=== PATIENT | male | born 1980 | race Caucasian/White ===

== ENCOUNTER 2016-10-17 12:12 | Outpatient (CLI) ==
[2016-09-11 07:58] VITALS: BMI 29.0
== END 2016-10-17 12:13 | disposition home or self-care (01) ==
LOC: LAB 12:12
PROVIDERS: ATTEND Nurse Practitioner Family
DX: Z20.2 Contact with and (suspected) exposure to infections with a predominantly sexual mode of transmission (principal)
CPT/HCPCS: 87800

== ENCOUNTER 2016-10-18 23:20 | Emergency (ER) ==
[2016-10-18 23:33] VITALS: BP 126/77; TEMP 97.5; BMI 27.1
[2016-10-18] MEDS ORDERED: ZOFRAN 4 MG/2 ML IM STA (23:42)
[2016-10-18] MEDS ORDERED: DEMEROL 25 MG/ML SYRINGE IM STA (23:42)
--- NOTE | 2016-10-18 23:45 | ED.PDOC ---
General ED Provider: Dr. DANIEL MENA Chief Complaint: Abdominal Pain Stated Complaint: Hurting in the right of the belly for 2 days, has been treated for genital herpes with valacyclovir, and took difluc yesterday. Time Seen by Physician: 23:42 Mode of Arrival: Walk-In Information Source: Patient Primary Care Provider: IRASEMA CORRAL Nursing and Triage Documentation Reviewed and Agree: Yes GI Complaint Exam - Abdominal Pain Complaint/Exam Onset: Gradual Symptoms Are: Still present Timing: Constant Initial Severity: Severe Current Severity: Severe Location of Pain: RUQ Character: Reports: Aching, Throbbing Aggravating: Reports: Movement, Deep breaths, Position Alleviating: Reports: None Associated Signs and Symptoms: Reports: Nausea. Denies: Diaphoresis, Fever, Cough, Chest pain, Dizziness, Back pain, Constipation, Blood in stool, Dysuria, Urinary frequency, Decreased urine output, Decreased appetite, Discharge, Vomiting, Diarrhea, Decreased activity AAA Risk Factors: Reports: None Cardiac Risk Factors: Reports: None Testicular Torsion Risk Factors: Reports: None Surgical Obstruction Risk Factors: Reports: None Related Surgical History: Reports: None Abdominal Findings: Absent: Pulsatile mass, Abdominal distention, Unequal femoral pulses Differential Diagnoses: Hepatitis, Pancreatitis, GB, PUD Review of Systems - Review Of Systems Constitutional: Reports: Malaise, Weakness Eyes: Reports: No symptoms Ears, Nose, Mouth, Throat: Reports: No symptoms Respiratory: Reports: No symptoms Cardiac: Reports: No symptoms GI: Reports: Abdominal pain : Reports: No symptoms Musculoskeletal: Reports: No symptoms Skin: Reports: No symptoms Neurological: Reports: No symptoms Endocrine: Reports: No symptoms Hematologic/Lymphatic: Reports: No symptoms All Other Systems: Reviewed and Negative Past Medical History - Past Medical History Previously Healthy: No Endocrine: Reports: None Cardiovascular: Reports: None Respiratory: Reports: None Hematological: Reports: None Gastrointestinal: Reports: None Genitourinary: Reports: None Neuro/Psych: Reports: None Musculoskeletal: Reports: None Cancer: Reports: None Other Pertinent Past Medical History: ADD, ADHD - Surgical History General Surgical History: Reports: None - Family History Family History: Reports: None - Social History Smoking Status: Current some day smoker Smoking Cessation Counseling Time: > 3 min - 10 min Hx Substance Use: Yes (ADDERALL) Alcohol Screening: Occasionally Physical Exam - Physical Exam Appearance: Well-appearing, Ill-appearing Eyes: MARCELINO, EOMI, Conjunctiva clear ENT: Ears normal, Nose normal, Oropharynx normal Respiratory: Airway patent, Breath sounds clear, Breath sounds equal, Respirations nonlabored Cardiovascular: RRR, Pulses normal, No rub, No murmur GI/: Soft, Tender Musculoskeletal: Normal strength, ROM intact, No edema, No calf tenderness Skin: Warm, Dry, Normal color Neurological: Sensation intact, Motor intact, Reflexes intact, Cranial nerves intact, Alert, Oriented Psychiatric: Affect appropriate, Mood appropriate Interpretation - Radiology Interpretation Radiology Interpretation By: Radiologist Radiology Results: Negative Exam Interpreted: CT Scan Critical Care Note - Critical Care Note Total Time (mins): 0 Course - Course Hematology/Chemistry: 10/18/16 23:59 10/18/16 23:59 Orders, Labs, Meds: Lab Review 10/18/16 23:59 WBC 5.87 RBC 4.63 L Hgb 14.6 Hct 43.5 MCV 94.0 MCH 31.5 H MCHC 33.6 RDW Coeff of Tc 12.8 Plt Count 276 Immature Gran % (Auto) 0.2 Neut % (Auto) 57.0 Lymph % (Auto) 32.2 [place] % (Auto) 8.7 Eos % (Auto) 1.2 Baso % (Auto) 0.7 Immature Gran # (Auto) 0.0 Neut # 3.4 Lymph # 1.9 [place] # 0.5 Eos # 0.1 Baso # 0.0 Sodium 137 Potassium 3.8 Chloride 101 Carbon Dioxide 27 Anion Gap 12.8 BUN 8 Creatinine 1.03 Estimated GFR (MDRD) 83.00 BUN/Creatinine Ratio 7.76 Glucose 91 Calcium 9.1 Total Bilirubin 0.42 AST 31 ALT 22 Alkaline Phosphatase 46 L Total Protein 6.7 Albumin 4.0 Globulin 2.7 Albumin/Globulin Ratio 1.48 Amylase 80 Lipase 43 Urine Color Yellow Urine Clarity Clear Urine pH 7.0 Ur Specific [place] 1.020 Urine Protein Negative Urine Glucose (UA) Negative Urine Ketones Negative Urine Blood Negative Urine Nitrite Negative Urine Bilirubin Negative Urine Urobilinogen 0.2 Ur Leukocyte Esterase Negative Orders Category Date Time Status AMYLASE Stat LAB 10/18/16 23:59 Completed CBC W/ AUTO DIFF Stat LAB 10/18/16 23:59 Completed COMPREHENSIVE METABOLIC PANEL Stat LAB 10/18/16 23:59 Completed LIPASE Stat LAB 10/18/16 23:59 Completed UA [URINALYSIS C & S IF INDICATED] Stat LAB 10/18/16 23:59 Completed Meperidine HCl/Pf [Demerol 25 mg/ml Syringe] MEDS 10/18/16 23:42 Discontinued 25 mg IM ONCE STA Ondansetron HCl/Pf [Zofran 4 mg/2 ml] MEDS 10/18/16 23:42 Discontinued 4 mg IM ONCE STA CT ABDOMEN/PELVIS WO CONTRAST Stat RADS 10/18/16 23:42 Taken Medications Discontinued Medications Generic Name Dose Route Start Last Admin Trade Name Priyanka PRN Reason Stop Dose Admin Meperidine HCl 25 mg 10/18/16 23:42 10/18/16 23:51 Demerol 25 Mg/Ml Syringe IM 10/18/16 23:43 25 mg ONCE STA Administration Ondansetron HCl 4 mg 10/18/16 23:42 10/18/16 23:55 Zofran 4 Mg/2 Ml IM 10/18/16 23:43 4 mg ONCE STA Administration Vital Signs: Temp Pulse Resp BP Pulse Ox 10/18/16 23:21 97.5 F L 81 20 126/77 96 Departure - Departure Time of Disposition: 00:31 Disposition: HOME SELF-CARE Discharge Problem: Abdominal pain Instructions: Abdominal Pain (ED) Condition: Stable Pt referred to PMD for follow-up: Yes Additional Instructions: increase hydration miralax otc Prescriptions: Polyethylene Glycol 3350 [Miralax] 17 gm PO DAILY #30 powd.pack Allergies/Adverse Reactions: Allergies No Known Allergies Allergy (Verified 10/18/16 23:33) Home Medications: Ambulatory Orders Polyethylene Glycol 3350 [Miralax] 17 gm PO DAILY #30 powd.pack 10/19/16 Disposition Discussed With: Patient
[2016-10-19 00:03] LABS: BASOPHILS % (AUTO) 0.7 % (0.0-3.0); EOSINOPHILS # (AUTO) 0.1 K/ul (0.0-0.7); EOSINOPHILS % (AUTO) 1.2 % (0.0-7.0); HEMATOCRIT 43.5 % (42.0-52.0); HEMOGLOBIN 14.6 g/dl (14.0-18.0); IMMATURE GRANULOCYTE % (AUTO) 0.2 % (0.0-5.0); LYMPHOCYTES # (AUTO) 1.9 K/uL (0.60-3.4); LYMPHOCYTES % (AUTO) 32.2 (10.0-50.0); MEAN CORPUSCULAR HEMOGLOBIN 31.5 pg (27.0-31.0); MEAN CORPUSCULAR HGB CONC 33.6 (31.8-35.4); MONOCYTES # (AUTO) 0.5 K/uL (0.4-2.0); MONOCYTES % (AUTO) 8.7 (0-10); NEUTROPHILS # (AUTO) 3.4 K/ul (2.0-6.9); PLATELET COUNT 276 10^3/uL (140-440); RED BLOOD COUNT 4.63 10^6/ul (4.70-6.10); WHITE BLOOD COUNT 5.87 K/ul (4.2-10.2)
[2016-10-19 00:10] LABS: ADD URINE MICROSCOPIC NO; BILIRUBIN,URINE Negative (NEGATIVE); KETONES,URINE Negative (NEGATIVE); LEUKOCYTE ESTERASE ,URINE Negative (NEGATIVE); NITRITE,URINE Negative (NEGATIVE); PROTEIN,URINE Negative (NEGATIVE); URINE, BLOOD Negative (NEGATIVE)
[2016-10-19 00:27] LABS: ALBUMIN/GLOBULIN RATIO 1.48; ANION GAP 12.8; BILIRUBIN,TOTAL 0.42 mg/dL (0.00-1.20); BUN/CREATININE RATIO 7.76; CALCIUM 9.1 mg/dL (8.2-10.2); CREATININE 1.03 mg/dL (0.60-1.10); POTASSIUM 3.8 mmol/L (3.5-5.1); TOTAL PROTEIN 6.7 g/dL (6.4-8.2)
--- NOTE | 2016-10-19 01:19 | CT ---
EXAM: CT scan abdomen pelvis without contrast HISTORY: Right upper quadrant pain COMPARISON: CT scan abdomen pelvis 07/23/2016 FINDINGS: Contiguous axial images obtained through the abdomen pelvis without contrast utilizing 3- mm collimation. Sagittal and coronal reconstructions were imaged and reviewed. There is minimal dep endent density at the left lung base. Gallbladder is fluid filled without cholelithiasis. The live r, pancreas, spleen and adrenal glands have normal unenhanced CT appearance. The kidneys are morpho logically normal. There is no evidence of free fluid or inflammatory changes Bone windows reveals no evidence of lytic or blastic lesions. IMPRESSION: No acute intra-abdominal findings. Atelectasis left lung base.
== END 2016-10-19 01:25 | disposition home or self-care (01) ==
LOC: ED 23:20
DX: R10.11 Right upper quadrant pain (principal); R11.0 Nausea; R53.1 Weakness; F17.210 Nicotine dependence, cigarettes, uncomplicated
CPT/HCPCS: 36415; 80053; 81001; 82150; 83690; 85025; 96372; 99283

== ENCOUNTER 2016-11-10 17:47 | Emergency (ER) ==
[2016-11-10 17:56] VITALS: BP 147/80; TEMP 98.3; BMI 27.8
[2016-11-10] MEDS ORDERED: SILVADENE CREAM TP STA (18:04)
[2016-11-10] MEDS ORDERED: NORCO 7.5-325 PO STA (18:04)
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
== END 2016-11-10 18:25 | disposition home or self-care (01) ==
LOC: ED 17:47
DX: T23.401A Corrosion of unspecified degree of right hand, unspecified site, initial encounter (principal); T23.402A Corrosion of unspecified degree of left hand, unspecified site, initial encounter; F17.210 Nicotine dependence, cigarettes, uncomplicated
CPT/HCPCS: 99282

== ENCOUNTER 2017-04-24 19:18 | Emergency (ER) ==
[2017-04-24 19:37] VITALS: BP 121/79; TEMP 98.7; BMI 25.7
[2017-04-24] MEDS ORDERED: TORADOL IM STA (19:51)
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
[2017-04-24 20:01] LABS: BILIRUBIN,URINE Negative (NEGATIVE); KETONES,URINE Negative (NEGATIVE); LEUKOCYTE ESTERASE ,URINE 1+ (NEGATIVE); NITRITE,URINE Negative (NEGATIVE); PH,URINE 6.5 (5-9); PROTEIN,URINE Negative (NEGATIVE); URINE, BLOOD Negative (NEGATIVE)
[2017-04-24 20:04] LABS: ADD URINE MICROSCOPIC YES
[2017-04-24 20:12] LABS: BACTERIA,URINE TRACE (NOT PRESENT)
--- NOTE | 2017-04-24 20:20 | DI ---
Exam: Right shoulder two views History: Right shoulder pain Findings / impression: No acute bony or articular abnormalities of the right shoulder. Osteoarthri tic enlargement of the distal clavicle is probably mild. The glenohumeral joint appears normal.
== END 2017-04-24 20:45 | disposition home or self-care (01) ==
LOC: ED 19:18
DX: S46.001A Unspecified injury of muscle(s) and tendon(s) of the rotator cuff of right shoulder, initial encounter (principal); M25.511 Pain in right shoulder; R30.0 Dysuria; F17.210 Nicotine dependence, cigarettes, uncomplicated
CPT/HCPCS: 81001; 87086; 87800; 99283

== ENCOUNTER 2017-06-10 10:35 | Emergency (ER) | payer OTHER ==
[2017-06-10 10:40] VITALS: BP 125/89; TEMP 97.2; BMI 25.7
--- NOTE | 2017-06-10 10:55 | ED.PDOC ---
General ED Provider: Dr. MESFIN JUSTICE JR Chief Complaint: Abdominal Pain Stated Complaint: patient states he has been having lower abd. pain and pain in right flank. states he has had a discharge from penis and his testicles are numb. states it is greenish pus. working didn't have time in custody doxycycline on saturday he hasn't had bowel movement 3 days. HAS HAD STD IN PAST MONTHS UNSURE OF DIAGNOSIS OR TREATMENT, HE COMPLAINS OF LE PAIN AND NUMBNESS WITH SCROTAL NUMBNESS MAEW REFLEXES INTACT SLR NEGATIVE- NO EVIDENCE OF NEUROLOGIC OR BONE DISEASE BUT RECOMMEND OUTPATIETN EVALUATION 97.2 64 20 124/ 89 07/09. cramping stabbing pain Time Seen by Physician: 11:17 Mode of Arrival: Walk-In Information Source: Patient, Other Exam Limitations: No limitations Primary Care Provider: DANIEL [facility] Nursing and Triage Documentation Reviewed and Agree: No Review of Systems - Review Of Systems Constitutional: Reports: Malaise, Weakness Eyes: Reports: No symptoms Ears, Nose, Mouth, Throat: Reports: No symptoms Respiratory: Reports: No symptoms Cardiac: Reports: No symptoms GI: Reports: Abdominal pain, Constipated : Reports: Burning, Dysuria, Discharge, Frequency, Pain, Urgency Musculoskeletal: Reports: Back pain, Muscle pain (LUMBAR SPINE AND PARASPINAL) Skin: Reports: No symptoms Neurological: Reports: Emotional problems, Numbness, Weakness Endocrine: Reports: No symptoms Hematologic/Lymphatic: Reports: No symptoms All Other Systems: Other Past Medical History - Past Medical History Previously Healthy: No Endocrine: Reports: None Cardiovascular: Reports: None Respiratory: Reports: None Hematological: Reports: None Gastrointestinal: Reports: None Genitourinary: Reports: None, Other (GENITAL HERPES, STDS) Neuro/Psych: Reports: Other (ADD/ADHD, HEAD INJURY ) Musculoskeletal: Reports: None Cancer: Reports: None Other Pertinent Past Medical History: ADD, ADHD - Surgical History General Surgical History: Reports: None, Orthopedic (Prior right shoulder injury , right hand surgery) - Family History Family History: Reports: None - Social History Smoking Status: Current every day smoker Hx Substance Use: Yes (adderall) Alcohol Screening: Occasionally Physical Exam - Physical Exam Appearance: Well-appearing, Thin Pain Distress: Mild Neck: Supple Respiratory: Airway patent GI/: Soft, Nontender, No masses, Bowel sounds normal, No Organomegaly, Tender (TESTICELA AND LUMBAR SPINE AND PARASPINAL MUSCLES) Musculoskeletal: Normal strength (NO EVIDENCE OF WEAKESS DEFECIT OR POSITIONAL SYMPTOMS), ROM intact, No edema, No calf tenderness Skin: Warm, Dry, Normal color Neurological: Sensation intact (DESPITE COMPLAITS OF NUMBNESS NOT OBJECTIVE CHANGES- COMPLAINSOF PAIN THROUGH SCROTUM), Motor intact, Reflexes intact, Cranial nerves intact, Alert, Oriented Psychiatric: Affect appropriate, Mood appropriate Critical Care Note - Critical Care Note Total Time (mins): 0 Course - Course Vital Signs: Temp Pulse Resp BP Pulse Ox 06/10/17 10:37 97.2 F L 64 20 125/89 97 Departure - Departure Time of Disposition: 11:26 Disposition: HOME SELF-CARE Discharge Problem: Concern about STD in male without diagnosis, History of penile discharge Instructions: Sexually Transmitted Diseases (ED), Condom Use (ED) Condition: Good Pt referred to PMD for follow-up: Yes Additional Instructions: FINISH DOXYCYCLINE ROCEPHIN GIVEN IN ER RECOMMEND REEVALUATION OF BACK PAIN RECOMMEND REEVALUATION OF PROSTATE AFTER PROSTATITIS RETURN IF FEVER OVER 101.0 IF VOMITING MORE THAN 24 HOURS OR IF OTHER NEW SYMPTOMS FOR CONSTIPATION MAY USE MIRALAX DAILY NEEDED FOR NO BOWEL MOVEMENT Prescriptions: Polyethylene Glycol 3350 [Miralax] 17 gm PO DAILY PRN #510 powder PRN Reason: Constipation Allergies/Adverse Reactions: Allergies No Known Allergies Allergy (Verified 06/10/17 10:40) Home Medications: Ambulatory Orders Ibuprofen [Motrin] 600 mg PO Q6H PRN #30 tablet 04/24/17 Doxycycline Hyclate 100 mg PO BID 06/10/17 Polyethylene Glycol 3350 [Miralax] 17 gm PO DAILY PRN #510 powder 06/10/17
[2017-06-10] MEDS ORDERED: ROCEPHIN IM STA (11:21)
[2017-06-10 11:30] LABS: ADD URINE MICROSCOPIC NO; BILIRUBIN,URINE Negative (NEGATIVE); KETONES,URINE Negative (NEGATIVE); LEUKOCYTE ESTERASE ,URINE Negative (NEGATIVE); NITRITE,URINE Negative (NEGATIVE); PROTEIN,URINE Negative (NEGATIVE); URINE, BLOOD Negative (NEGATIVE)
[2017-06-10] MEDS ORDERED: LIDOCAINE 1% 2ML (SURGERY ONLY) INJ STA (11:33)
[2017-06-10] MEDS ORDERED: LIDOCAINE HCL 1% SDV ONE (12:07)
== END 2017-06-10 12:08 | disposition home or self-care (01) ==
LOC: ED 10:35
DX: R36.9 Urethral discharge, unspecified (principal); K59.00 Constipation, unspecified; M54.9 Dorsalgia, unspecified; F17.210 Nicotine dependence, cigarettes, uncomplicated
CPT/HCPCS: 36415; 81001; 87800; 96372; 99283

== ENCOUNTER 2019-01-13 06:19 | Emergency (ER) ==
[2019-01-13 06:29] VITALS: TEMP 98; BMI 28.8
[2019-01-13 06:31] VITALS: BP 165/80
[2019-01-13] MEDS ORDERED: NORFLEX IM STA (06:36)
[2019-01-13] MEDS ORDERED: TORADOL IM STA (06:36)
--- NOTE | 2019-01-13 06:39 | ED.PDOC ---
General Stated Complaint: my back hurts all the way to the front Time Seen by Physician: 06:30 Mode of Arrival: Walk-In Information Source: Patient Exam Limitations: No limitations Nursing and Triage Documentation Reviewed and Agree: Yes Does patient meet sepsis criteria?: No System Inflammatory Response Syndrome: Not Applicable <CORYKARMEN Last Filed: 01/13/19 06:37> <GUSTAVO PHILLIPS - Last Filed: 01/13/19 08:08> ED Provider: Dr. GUSTAVO PHILLIPS Chief Complaint: Back Pain Sepsis Protocol: For patient's 13 years and over: Temp is 96.8 and below OR 101 and greater Pulse >90 BPM Resp >20/minute Acutely Altered Mental Status Are patient's symptoms suggestive of a new infection, such as: -Pneumonia -Skin, Soft Tissue -Endocarditis -UTI -Bone, Joint Infection -Implantable Device -Acute Abdominal Infection -Wound Infection -Meningitis -Blood Stream Catheter Infection -Unknown Musculoskeletal Complaint Exam - Back Pain Complaint/Exam Mechanism of Injury: Reports: No known trauma Onset/Duration: 3 weeks Symptoms Are: Still present Timing: Constant Initial Severity: Mild Current Severity: Moderate Location: Reports: Discrete Character: Reports: Dull, Aching Aggravating: Reports: Movements, Lifting, Bending Associated Signs and Symptoms: Reports: Flank pain Focal Tenderness: Yes Paraspinal Muscle Tenderness: Yes Paraspinal Muscle Spasm: No Scoliosis: No Lordosis: No Kyphosis: No SLR Test: Right Negative, Left Negative Hip Motion Testing Pain: Right Negative, Left Negative Focal Weakness: Present: None Focal Sensory Loss: Present: None Gait: Present: Normal Differential Diagnoses: Herniated Disk, Renal Colic <CORYKARMEN Last Filed: 01/13/19 06:37> Review of Systems - Review Of Systems Constitutional: Reports: No symptoms Eyes: Reports: No symptoms Ears, Nose, Mouth, Throat: Reports: No symptoms Respiratory: Reports: No symptoms Cardiac: Reports: No symptoms GI: Reports: No symptoms : Reports: No symptoms Musculoskeletal: Reports: Back pain Skin: Reports: No symptoms Neurological: Reports: No symptoms Endocrine: Reports: No symptoms Hematologic/Lymphatic: Reports: No symptoms All Other Systems: Reviewed and Negative <CORYKARMEN Last Filed: 01/13/19 06:37> Past Medical History - Past Medical History Previously Healthy: No Endocrine: Reports: None Cardiovascular: Reports: None Respiratory: Reports: None Hematological: Reports: None Gastrointestinal: Reports: None Genitourinary: Reports: None, Other (GENITAL HERPES, STDS) Neuro/Psych: Reports: Other (ADD/ADHD, HEAD INJURY ) Musculoskeletal: Reports: None Cancer: Reports: None Other Pertinent Past Medical History: ADD, ADHD - Surgical History General Surgical History: Reports: None, Orthopedic (Prior right shoulder injury , right hand surgery) - Family History Family History: Reports: None - Social History Smoking Status: Current every day smoker, Heavy tobacco smoker Hx Substance Use: Yes (adderall) Alcohol Screening: Occasionally - Immunizations Tetanus Shot up to Date: No <KARMEN RAY Last Filed: 01/13/19 06:37> Physical Exam - Physical Exam Appearance: Well-appearing, No pain distress, Well-nourished Eyes: MARCELINO, EOMI, Conjunctiva clear ENT: Ears normal, Nose normal, Oropharynx normal Neck: Supple Respiratory: Airway patent, Breath sounds clear, Breath sounds equal, Respirations nonlabored Cardiovascular: RRR, Pulses normal, No rub, No murmur GI/: Soft, Nontender, No masses, Bowel sounds normal, No Organomegaly Musculoskeletal: Limited ROM Skin: Warm Neurological: Sensation intact Psychiatric: Affect appropriate, Mood appropriate <KARMEN RAY - Last Filed: 01/13/19 06:37> Interpretation - Radiology Interpretation Radiology Interpretation By: Radiologist Radiology Results: Negative Exam Interpreted: Other (Abdomen/Pelvis without - negative) Radiology Interpretation By: Radiologist Radiology Results: Negative Exam Interpreted: Other (CT Lumbar Spine - Negative) <GUSTAVO PHILLIPS - Last Filed: 01/13/19 08:08> Re-Evaluation - Re-Evaluation Time of Re-Evaluation: 07:45 Status: Unchanged Vital Signs Stable: Yes Appearance: NAD Lungs: Clear Skin: Warm and Dry Neuro: Alert and Oriented X3 CV: RRR Additional Comments: Abd soft; generalized tenderness per patient both sides radiating from back <GUSTAVO PHILLIPS - Last Filed: 01/13/19 08:08> Physician Notification - Case Discussed Physician Notified: dr phillips Time of Notification: 07:00 <KARMEN RAY Last Filed: 01/13/19 06:37> Critical Care Note <KARMEN RAY Last Filed: 01/13/19 06:37> - Critical Care Note Total Time (mins): 35 (Discussion with patient re problem history) <GUSTAVO PHILLIPS - Last Filed: 01/13/19 08:08> - Critical Care Note Comments: Pt states HX genital herpes; wants RX for valtrex. States back pain has been ongoing for years - getting worse. Radiates around to abd and down legs. Educated re labs and CTs done - no indication for further studies. Needs to follow up with a primary care provider. (GUSTAVO PHILLIPS) Course <KARMEN RAY - Last Filed: 01/13/19 06:37> - Course Hematology/Chemistry: 01/13/19 06:40 01/13/19 06:40 <GUSTAVO PHILLIPS - Last Filed: 01/13/19 08:08> - Course Orders, Labs, Meds: Lab Review 01/13/19 01/13/19 01/13/19 06:40 06:40 07:32 WBC 10.49 H RBC 4.94 Hgb 15.8 Hct 45.5 MCV 92.1 MCH 32.0 H MCHC 34.7 RDW Coeff of Tc 12.5 Plt Count 240 Immature Gran % (Auto) 0.2 Neut % (Auto) 80.1 Lymph % (Auto) 11.1 White % (Auto) 7.2 Eos % (Auto) 1.0 Baso % (Auto) 0.4 Immature Gran # (Auto) 0.0 Neut # (Auto) 8.4 H Lymph # (Auto) 1.2 White # (Auto) 0.8 Eos # (Auto) 0.1 Baso # (Auto) 0.0 Sodium 135.4 Potassium 3.57 Chloride 98.6 Carbon Dioxide 27.9 Anion Gap 12.47 BUN 7.8 L Creatinine 0.87 Estimated GFR (MDRD) 99.00 BUN/Creatinine Ratio 8.96 Glucose 164.2 H Calcium 9.12 Total Bilirubin 1.23 AST 49.7 ALT 60.0 H Alkaline Phosphatase 46.7 Total Protein 7.38 Albumin 4.87 Globulin 2.51 Albumin/Globulin Ratio 1.94 Amylase 65.8 Lipase 75.3 Urine Color [place] Urine Clarity Clear Urine pH 5.5 Ur Specific [place] 1.015 Urine Protein 1+ Urine Glucose (UA) Trace Urine Ketones 2+ Urine Blood Negative Urine Nitrite Positive Urine Bilirubin 1+ Urine Urobilinogen 2.0 Ur Leukocyte Esterase Negative Ur Squamous Epith Cells Pending Orders Category Date Time Status AMYLASE Stat LAB 01/13/19 06:40 Completed CBC W/ AUTO DIFF Stat LAB 01/13/19 06:40 Completed COMPREHENSIVE METABOLIC PANEL Stat LAB 01/13/19 06:40 Completed LIPASE Stat LAB 01/13/19 06:40 Completed URINALYSIS C & S IF INDICATED Stat LAB 01/13/19 07:32 Results Ketorolac Tromethamine [Toradol] MEDS 01/13/19 06:36 Discontinued 60 mg IM ONCE STA Orphenadrine Citrate [Norflex] MEDS 01/13/19 06:36 Discontinued 60 mg IM ONCE STA CT ABDOMEN/PELVIS WO CONTRAST Stat RADS 01/13/19 06:[address] LUMBAR SPINE W/O CONTRAST Stat RADS 01/13/19 06:35 Completed Medications Discontinued Medications Generic Name Dose Route Start Last Admin Trade Name Freq PRN Reason Stop Dose Admin Ketorolac Tromethamine 60 mg 01/13/19 06:36 01/13/19 06:48 Toradol IM 01/13/19 06:37 60 mg ONCE STA Administration Orphenadrine Citrate 60 mg 01/13/19 06:36 01/13/19 06:48 Norflex IM 01/13/19 06:37 60 mg ONCE STA Administration Vital Signs: Temp Pulse Resp BP Pulse Ox 01/13/19 06:21 98 F 106 H 18 165/80 H 95 Departure <KARMEN RAY - Last Filed: 01/13/19 06:37> - Departure Time of Disposition: 08:02 Pt referred to PMD for follow-up: Yes (Follow up with a primary care provider) IPMP verified?: No (CS not prescribed) Disposition Discussed With: Patient (No indication for additional studies; educated that the initial ER workup was very thorough and excplored abdominal as well as back pathology.) <GUSTAVO PHILLIPS - Last Filed: 01/13/19 08:08> - Departure Disposition: HOME SELF-CARE Discharge Problem: Back pain Qualifiers: Back pain location: low back pain Chronicity: unspecified Back pain laterality : bilateral Sciatica laterality: bilateral sciatica Instructions: Low Back Strain (ED) Condition: Stable Additional Instructions: Must follow up with a primary care provider for prescriptions for chronic care needs. Return to ER if fever 101.5 or above; vomiting 3 times or more in an hour or worsening abdominal or back pain. Allergies/Adverse Reactions: Allergies No Known Allergies Allergy (Verified 01/13/19 06:29) Home Medications: Ambulatory Orders 1 [No Reported Medications] 01/13/19
--- NOTE | 2019-01-13 07:38 | CT ---
EXAM: CT LUMBAR SPINE HISTORY: Low back pain TECHNIQUE: CT lumbar spine without contrast. 3-mm axial sections. Coronal and sagittal reformation s. COMPARISON: 07/25/2016 FINDINGS: Sagittal images demonstrate no spondylolisthesis, disc space abnormality or loss of vert ebral body height. Facet joints are normally covered. No scoliosis is seen. Pedicles are intact. The visualized body of the sacrum and sacroiliac joints are normal. IMPRESSION: Within normal limits.
--- NOTE | 2019-01-13 07:43 | CT ---
EXAM: CT ABDOMEN AND PELVIS HISTORY: Bilateral flank pain TECHNIQUE: CT abdomen and pelvis without intravenous contrast. Images were reconstructed using 3 mm section thickness. Reformations were prepared. COMPARISON: 10/19/2016 FINDINGS: Diagnostic limitations may exist without including contrast enhanced images. The liver, spleen, gall bladder, pancreas and adrenal glands appear normal. The kidneys appear normal with no nephrolithiasi s or hydronephrosis. There is no perinephric fat stranding or evidence of ureteral calculus/dilatati on. Normal abdominal aorta. No gastric distension. Normal appendix and general bowel gas pattern. Urinary bladder and prostate are normal. No ascites or inflammatory infiltration of the abdominal fat. Ventral abdominal wall is intact without herniation. Bones appear appropriate for age. Lung bases a re clear. There is no pneumoperitoneum. IMPRESSION: No acute intra-abdominal or pelvic abnormality.
== END 2019-01-13 08:21 | disposition home or self-care (01) ==
LOC: ED 06:19
DX: M54.42 Lumbago with sciatica, left side (principal); M54.41 Lumbago with sciatica, right side; F17.210 Nicotine dependence, cigarettes, uncomplicated; R10.9 Unspecified abdominal pain
CPT/HCPCS: 36415; 80053; 81001; 82150; 83690; 85025; 86592; 87086; 96372; 99282; 99283

== ENCOUNTER 2019-01-13 18:11 | Emergency (ER) ==
[2019-01-13 18:17] VITALS: BP 114/78; TEMP 98.5
--- NOTE | 2019-01-13 19:07 | ED.PDOC ---
General ED Provider: Dr. PETER VALENZUELA Chief Complaint: Back Pain Stated Complaint: Patient states that recently he had an exposure to syphylis and unprotected. sex.Requewsting an RPR est and PCN treatment.Is nonallergic to PCN.Said exposure was within last 1 1/2 mo and he thonks that he migt have missed a chancre stage,especially a nonpainfull one.He also reports pain and stiffness in lower back and muscles in he area and thighs.No cramps or limp. Time Seen by Physician: 19:07 Mode of Arrival: Walk-In Information Source: Patient Exam Limitations: No limitations Seen Within Last 72 Hours for Same Complaint By: ED Nursing and Triage Documentation Reviewed and Agree: Yes (complaint od syphylis is new.) Does patient meet sepsis criteria?: No System Inflammatory Response Syndrome: Not Applicable Sepsis Protocol: For patient's 13 years and over: Temp is 96.8 and below OR 101 and greater Pulse >90 BPM Resp >20/minute Acutely Altered Mental Status Are patient's symptoms suggestive of a new infection, such as: -Pneumonia -Skin, Soft Tissue -Endocarditis -UTI -Bone, Joint Infection -Implantable Device -Acute Abdominal Infection -Wound Infection -Meningitis -Blood Stream Catheter Infection -Unknown Complaint Exam - STD Male Complaint/Exam Onset/Duration: within last 1 1/2 mo Symptoms Are: Still present Timing: Constant Initial Severity: Mild Current Severity: Mild Location: Reports: Groin Character: Recent STD exposure Aggravating: Reports: None Alleviating: Reports: None Associated Signs and Symptoms: Reports: Dysuria Related Surgical History: Reports: None Genitalia Exam: Present: Normal findings Differential Diagnoses: Syphillis, Urethritis, STD, UTI Review of Systems - Review Of Systems Constitutional: Reports: No symptoms Eyes: Reports: No symptoms Ears, Nose, Mouth, Throat: Reports: No symptoms Respiratory: Reports: No symptoms Cardiac: Reports: No symptoms GI: Reports: No symptoms : Reports: Dysuria, Other Musculoskeletal: Reports: Back pain Skin: Reports: No symptoms Neurological: Reports: No symptoms Endocrine: Reports: No symptoms Hematologic/Lymphatic: Reports: No symptoms All Other Systems: Reviewed and Negative Past Medical History - Past Medical History Previously Healthy: No Endocrine: Reports: None Cardiovascular: Reports: None Respiratory: Reports: None Hematological: Reports: None Gastrointestinal: Reports: None Genitourinary: Reports: None, Other (GENITAL HERPES, STDS) Neuro/Psych: Reports: Other (ADD/ADHD, HEAD INJURY ) Musculoskeletal: Reports: None Cancer: Reports: None Other Pertinent Past Medical History: ADD, ADHD - Surgical History General Surgical History: Reports: None, Orthopedic (Prior right shoulder injury , right hand surgery) - Family History Family History: Reports: None - Social History Smoking Status: Current every day smoker, Heavy tobacco smoker Hx Substance Use: Yes (adderall) Alcohol Screening: Occasionally Physical Exam - Physical Exam Appearance: Well-appearing Ill-appearing: None Pain Distress: None Eyes: MARCELINO ENT: Ears normal, Nose normal, Oropharynx normal Neck: Supple Respiratory: Airway patent, Breath sounds clear Cardiovascular: RRR, Pulses normal, No rub, No murmur GI/: Soft, No masses, Bowel sounds normal Musculoskeletal: Normal strength, ROM intact Skin: Warm, Dry, Normal color Neurological: Sensation intact, Motor intact, Reflexes intact, Cranial nerves intact, Alert Psychiatric: Anxious Critical Care Note - Critical Care Note Total Time (mins): 0 Course - Course Orders, Labs, Meds: Orders Category Date Time Status RPR [RAPID PLASMA REAGIN] Stat LAB 01/13/19 06:40 Received URINALYSIS C & S IF INDICATED Stat LAB 01/13/19 19:16 Uncollected Cyclobenzaprine HCl [Flexeril] MEDS 01/13/19 19:20 Discontinued 10 mg PO ONCE STA Penicillin G Benzathine [Bicillin l-A] MEDS 01/13/19 19:19 Discontinued 1,200,000 unit IM ONCE STA Medications Discontinued Medications Generic Name Dose Route Start Last Admin Trade Name Freq PRN Reason Stop Dose Admin Cyclobenzaprine HCl 10 mg 01/13/19 19:20 01/13/19 19:28 Flexeril PO 01/13/19 19:21 10 mg ONCE STA Administration Penicillin G Benzathine 1,200,000 unit 01/13/19 19:19 01/13/19 19:29 Bicillin L-A IM 01/13/19 19:20 1,200,000 unit ONCE STA Administration Vital Signs: Temp Pulse Resp BP Pulse Ox 01/13/19 18:11 98.5 F 96 H 20 114/78 95 Departure - Departure Time of Disposition: 19:40 Disposition: HOME SELF-CARE Discharge Problem: infection, chlamydial, Syphilis contact, treated Instructions: Nonspecific Urethritis in Men (ED) Condition: Good Pt referred to PMD for follow-up: Yes (fu with PCP of choice) IPMP verified?: No Allergies/Adverse Reactions: Allergies No Known Allergies Allergy (Verified 01/13/19 18:19) Home Medications: Ambulatory Orders 1 [No Reported Medications] 01/13/19 Disposition Discussed With: Patient
[2019-01-13] MEDS ORDERED: BICILLIN L-A IM STA (19:19)
[2019-01-13] MEDS ORDERED: FLEXERIL PO STA (19:20)
== END 2019-01-13 19:51 | disposition home or self-care (01) ==
LOC: ED 18:11
DX: A56.8 Sexually transmitted chlamydial infection of other sites (principal); Z20.2 Contact with and (suspected) exposure to infections with a predominantly sexual mode of transmission; M54.5 Low back pain; F17.210 Nicotine dependence, cigarettes, uncomplicated
CPT/HCPCS: 36415; 86592; 96372; 99282

== ENCOUNTER 2019-01-23 15:47 | Outpatient (CLI) ==
--- NOTE | 2019-01-23 16:42 | DI ---
EXAM: KUB HISTORY: Lower abdominal pain FINDINGS: Bowel gas pattern appears normal. There is no excessive fecal retention. The rectal vaul t is clear. No suspicious calcifications, evidence of organomegaly or acute bony finding. IMPRESSION: 1. Within normal limits radiographically.
== END 2019-01-23 15:48 | disposition home or self-care (01) ==
LOC: RAD 15:47
PROVIDERS: ATTEND Nurse Practitioner Family
DX: R10.30 Lower abdominal pain, unspecified (principal)
CPT/HCPCS: 81001

== ENCOUNTER 2019-02-02 12:32 | Emergency (ER) ==
[2019-02-02 12:38] VITALS: BP 130/82; TEMP 97.7; BMI 29.4
--- NOTE | 2019-02-02 13:54 | CT ---
EXAM: CT ABDOMEN AND PELVIS HISTORY: Low back pain TECHNIQUE: CT abdomen and pelvis without intravenous contrast. Images were reconstructed using 3 mm section thickness. Reformations were prepared. COMPARISON: 01/13/2019 FINDINGS: The kidneys, ureters and urinary bladder appear normal. Within limits of this unenhanced exam, no focal hepatic or splenic lesions are identified. The gallb ladder, pancreas and adrenal glands appear normal. Normal aorta. The stomach is unremarkable. Norm al appendix and general bowel gas pattern. There is no ascites or prostate enlargement. No inflamma tory infiltration of the abdominal fat. No ventral hernia. The bones reveal degenerative changes of the lumbosacral junction, see also same day CT lumbar spine report. Lung bases are clear and there is no pneumoperitoneum. IMPRESSION: 1. No acute intra-abdominal or pelvic abnormality
--- NOTE | 2019-02-02 14:01 | CT ---
EXAM: CT LUMBAR SPINE HISTORY: Back pain TECHNIQUE: CT lumbar spine without contrast. 3-mm axial sections. Coronal and sagittal reformation s. COMPARISON: 01/13/2019 FINDINGS: Bone density appears normal. Normal vertebral body height and alignment. No scoliosis. Sacroiliac joints are within normal limits. No noticeable disc bulging is seen within limits of CT. There is p osterior bony spurring off of the inferior endplate at L5 leading to at least mild bilateral neural f oraminal narrowing at this level. Paraspinal soft tissues are within normal limits. IMPRESSION: 1. Bony spurring at L5/S1 leads to at least mild bilateral neural foraminal narrowing. Otherwise un remarkable exam.
--- NOTE | 2019-02-02 14:23 | ED.PDOC ---
General ED Provider: Dr. ERMA WOOD Chief Complaint: Back Pain Stated Complaint: back pain generalized myalgia and fever. onset today. has beeding dealing with the back pain component of this isue for almost 2 weeks . Time Seen by Physician: 12:34 (seen with nurse at all times ) Mode of Arrival: Walk-In Information Source: Patient Exam Limitations: No limitations Primary Care Provider: IRASEMA CORRAL Nursing and Triage Documentation Reviewed and Agree: Yes Does patient meet sepsis criteria?: No System Inflammatory Response Syndrome: Not Applicable Sepsis Protocol: For patient's 13 years and over: Temp is 96.8 and below OR 101 and greater Pulse >90 BPM Resp >20/minute Acutely Altered Mental Status Are patient's symptoms suggestive of a new infection, such as: -Pneumonia -Skin, Soft Tissue -Endocarditis -UTI -Bone, Joint Infection -Implantable Device -Acute Abdominal Infection -Wound Infection -Meningitis -Blood Stream Catheter Infection -Unknown Musculoskeletal Complaint Exam - Back Pain Complaint/Exam Mechanism of Injury: Reports: No known trauma Onset/Duration: 1 week Symptoms Are: Still present Timing: Intermittent Episodes Lasting: Days Initial Severity: Moderate Current Severity: Mild Location: Reports: Discrete Character: Reports: Aching, Spasmodic, Stiffness Aggravating: Reports: Movements, Lifting, Bending, Walking Alleviating: Reports: Rest, Position Associated Signs and Symptoms: Reports: Fever. Denies: Swelling, Redness, Bruising, Weakness, Numbness, Tingling, Abdominal pain, Flank pain, Bladder incontinence, Bowel incontinence, Weight loss, Pain with weight bearing Related History: Reports: Similar episode (2 weeks w/o fever ) TAD Risk Factors: Reports: None AAA Risk Factors: Reports: None Cauda Equina Risk Factors: Reports: None Epidural Abcess Risk Factors: Reports: None Related Surgical History: Reports: None Focal Tenderness: No Paraspinal Muscle Tenderness: No Paraspinal Muscle Spasm: No SLR Test: Right Positive, Left Negative Hip Motion Testing Pain: Right Negative, Left Negative Focal Weakness: Present: None Focal Sensory Loss: Present: None Differential Diagnoses: Strain, Sprain Review of Systems - Review Of Systems Constitutional: Reports: Fever, Malaise, Loss of appetite Eyes: Reports: No symptoms Ears, Nose, Mouth, Throat: Reports: No symptoms Respiratory: Reports: No symptoms Cardiac: Reports: No symptoms GI: Reports: No symptoms : Reports: No symptoms Musculoskeletal: Reports: Back pain Skin: Reports: No symptoms Neurological: Reports: No symptoms Endocrine: Reports: No symptoms Hematologic/Lymphatic: Reports: No symptoms All Other Systems: Reviewed and Negative Past Medical History - Past Medical History Previously Healthy: No Endocrine: Reports: None Cardiovascular: Reports: None Respiratory: Reports: None Hematological: Reports: None Gastrointestinal: Reports: None Genitourinary: Reports: None, Other (GENITAL HERPES, STDS) Neuro/Psych: Reports: Other (ADD/ADHD, HEAD INJURY ) Musculoskeletal: Reports: None Cancer: Reports: None Other Pertinent Past Medical History: ADD, ADHD - Surgical History General Surgical History: Reports: None, Orthopedic (Prior right shoulder injury , right hand surgery) - Family History Family History: Reports: None - Social History Smoking Status: Current every day smoker, Heavy tobacco smoker Hx Substance Use: Yes (adderall) Alcohol Screening: Occasionally Physical Exam - Physical Exam Appearance: Well-appearing, No pain distress, Well-nourished Eyes: MARCELINO, EOMI, Conjunctiva clear ENT: Ears normal, Nose normal, Oropharynx normal Respiratory: Airway patent, Breath sounds clear, Breath sounds equal, Respirations nonlabored Cardiovascular: RRR, Pulses normal, No rub, No murmur GI/: Soft, Nontender, No masses, Bowel sounds normal, No Organomegaly Musculoskeletal: Normal strength, ROM intact, No edema, No calf tenderness Skin: Warm, Dry, Normal color Neurological: Sensation intact, Motor intact, Reflexes intact, Cranial nerves intact, Alert, Oriented Psychiatric: Affect appropriate, Mood appropriate Interpretation - Radiology Interpretation Radiology Interpretation By: Radiologist Radiology Results: No acute changes Exam Interpreted: CT Scan Re-Evaluation - Re-Evaluation Time of Re-Evaluation: 14:00 Status: Improved Vital Signs Stable: Yes Pain Level: 3/10 Appearance: NAD Lungs: Clear Skin: Warm and Dry Neuro: Alert and Oriented X3 CV: RRR Critical Care Note - Critical Care Note Total Time (mins): 0 Course - Course Hematology/Chemistry: 02/02/19 12:58 02/02/19 12:58 Orders, Labs, Meds: Lab Review 02/02/19 02/02/19 02/02/19 12:58 12:58 12:58 WBC 6.85 RBC 4.64 L Hgb 15.0 Hct 43.6 MCV 94.0 MCH 32.3 H MCHC 34.4 RDW Coeff of Tc 12.8 Plt Count 226 Immature Gran % (Auto) 0.4 Neut % (Auto) 75.8 Lymph % (Auto) 17.2 [place] % (Auto) 5.5 Eos % (Auto) 0.7 Baso % (Auto) 0.4 Immature Gran # (Auto) 0.0 Neut # (Auto) 5.2 Lymph # (Auto) 1.2 [place] # (Auto) 0.4 Eos # (Auto) 0.1 Baso # (Auto) 0.0 Sodium 138.6 Potassium 4.14 Chloride 103.9 Carbon Dioxide 27.8 Anion Gap 11.04 BUN 11.0 Creatinine 0.89 Estimated GFR (MDRD) 97.00 BUN/Creatinine Ratio 12.35 Glucose 91.4 Lactic Acid Calcium 9.26 Total Bilirubin 0.66 AST 37.4 ALT 76.6 H Alkaline Phosphatase 50.7 Total Protein 7.24 Albumin 4.71 Globulin 2.53 Albumin/Globulin Ratio 1.86 Procalcitonin < 0.05 Urine Color Urine Clarity Urine pH Ur Specific [place] Urine Protein Urine Glucose (UA) Urine Ketones Urine Blood Urine Nitrite Urine Bilirubin Urine Urobilinogen Ur Leukocyte Esterase Influ A Molecular Assay Influ B Molecular Assay 02/02/19 02/02/19 02/02/19 12:58 13:00 13:05 WBC RBC Hgb Hct MCV MCH MCHC RDW Coeff of Tc Plt Count Immature Gran % (Auto) Neut % (Auto) Lymph % (Auto) [place] % (Auto) Eos % (Auto) Baso % (Auto) Immature Gran # (Auto) Neut # (Auto) Lymph # (Auto) [place] # (Auto) Eos # (Auto) Baso # (Auto) Sodium Potassium Chloride Carbon Dioxide Anion Gap BUN Creatinine Estimated GFR (MDRD) BUN/Creatinine Ratio Glucose Lactic Acid 0.81 Calcium Total Bilirubin AST ALT Alkaline Phosphatase Total Protein Albumin Globulin Albumin/Globulin Ratio Procalcitonin Urine Color Yellow Urine Clarity Clear Urine pH 7.0 Ur Specific [place] 1.015 Urine Protein Negative Urine Glucose (UA) Negative Urine Ketones Negative Urine Blood Negative Urine Nitrite Negative Urine Bilirubin Negative Urine Urobilinogen 0.2 Ur Leukocyte Esterase Negative Influ A Molecular Assay Negative by naat Influ B Molecular Assay Negative by naat Orders Category Date Time Status BLOOD CULTURE Stat LAB 02/02/19 13:28 Received CBC W/ AUTO DIFF Stat LAB 02/02/19 12:58 Completed COMPREHENSIVE METABOLIC PANEL Stat LAB 02/02/19 12:58 Completed FLU A/B MOLECULAR Stat LAB 02/02/19 13:05 Completed LACTIC ACID Stat LAB 02/02/19 12:58 Completed MOLECULAR GROUP A STREP Stat LAB 02/02/19 13:05 Completed PROCALCITONIN Stat LAB 02/02/19 12:58 Completed URINALYSIS C & S IF INDICATED Stat LAB 02/02/19 13:[address] ABDOMEN/PELVIS WO CONTRAST Stat RADS 02/02/19 12:[address] LUMBAR SPINE W/O CONTRAST Stat RADS 02/02/19 12:46 Completed Vital Signs: Temp Pulse Resp BP Pulse Ox 02/02/19 12:32 97.7 F 77 18 130/82 98 Departure - Departure Time of Disposition: 14:24 Disposition: HOME SELF-CARE Discharge Problem: Low back pain Qualifiers: Chronicity: unspecified Back pain laterality: unspecified Sciatica presence: without sciatica Qualified Code(s): M54.5 - Low back pain Fever Qualifiers: Fever type: unspecified Qualified Code(s): R50.9 - Fever, unspecified Instructions: Fever in Adults (ED), Acute Low Back Pain (ED) Condition: Good Pt referred to PMD for follow-up: Yes IPMP verified?: No Additional Instructions: Please call your Family Physician as soon as possible to schedule a follow-up appointment. Prescriptions: Hydrocodone Bit/Acetaminophen [[place] 10-325] 1 each PO Q6HR #7 tablet Allergies/Adverse Reactions: Allergies No Known Allergies Allergy (Verified 02/02/19 12:38) Home Medications: Ambulatory Orders Hydrocodone Bit/Acetaminophen [[place] 10-325] 1 each PO Q6HR #7 tablet 02/02/19 Disposition Discussed With: Patient
== END 2019-02-02 14:55 | disposition home or self-care (01) ==
LOC: ED 12:32
DX: M54.5 Low back pain (principal); R50.9 Fever, unspecified; F17.210 Nicotine dependence, cigarettes, uncomplicated
CPT/HCPCS: 36415; 80053; 81001; 83605; 84145; 85025; 87040; 87502; 87651; 99283

== ENCOUNTER 2019-02-04 11:24 | Outpatient (CLI) | END 2019-02-04 11:25 | disposition home or self-care (01) | LOC: RHC-LAB 11:24 | PROVIDERS: ATTEND Nurse Practitioner Family | DX: Z87.898 Personal history of other specified conditions (principal) | CPT/HCPCS: 36415; 80074; 86708; 86803; 87340; 87522 ==

== ENCOUNTER 2019-05-18 17:17 | Emergency (ER) ==
[2019-05-18 17:24] VITALS: TEMP 99.5; BMI 26.3
--- NOTE | 2019-05-18 18:47 | ED.PDOC ---
General <VICTORINA STEVENSON - Last Filed: 05/18/19 19:45> Stated Complaint: back pain abdominal pain Time Seen by Physician: 17:17 Mode of Arrival: Walk-In Information Source: Patient Exam Limitations: No limitations Nursing and Triage Documentation Reviewed and Agree: Yes Does patient meet sepsis criteria?: No System Inflammatory Response Syndrome: Not Applicable <ERMA WOOD - Last Filed: 05/20/19 15:07> ED Provider: Dr. ERMA WOOD Chief Complaint: Back Pain Primary Care Provider: IRASEMA CORRAL Sepsis Protocol: For patient's 13 years and over: Temp is 96.8 and below OR 101 and greater Pulse >90 BPM Resp >20/minute Acutely Altered Mental Status Are patient's symptoms suggestive of a new infection, such as: -Pneumonia -Skin, Soft Tissue -Endocarditis -UTI -Bone, Joint Infection -Implantable Device -Acute Abdominal Infection -Wound Infection -Meningitis -Blood Stream Catheter Infection -Unknown GI Complaint Exam - Abdominal Pain Complaint/Exam Onset: Gradual Duration: weeks , he is almost home less poor po intake does meth abuse Symptoms Are: Still present Timing: Intermittent Initial Severity: Mild Current Severity: Mild Location of Pain: Diffuse Radiates To: Reports: Back, Flank Character: Reports: Dull Aggravating: Reports: None Alleviating: Reports: Rest Associated Signs and Symptoms: Reports: Cough. Denies: Diaphoresis, Fever, Chest pain, Dizziness, Back pain, Constipation, Blood in stool, Dysuria, Urinary frequency, Decreased urine output, Decreased appetite, Discharge, Nausea , Vomiting, Diarrhea, Decreased activity Related History: Reports: Similar episode AAA Risk Factors: Reports: None Cardiac Risk Factors: Reports: Smoking Testicular Torsion Risk Factors: Reports: None Surgical Obstruction Risk Factors: Reports: None Related Surgical History: Reports: None Abdominal Findings: Present: None Differential Diagnoses: Appendicitis, Bowel Obstruction, Constipation, Diverticulitis, Gastroenteritis, Irritable Bowel Syndrome, Pneumonia, Renal Colic, UTI Quality Indicators for AMI: EKG in 10min., PTCA in 30min. <ERMA WOOD - Last Filed: 05/20/19 15:07> Review of Systems - Review Of Systems Constitutional: Reports: No symptoms Eyes: Reports: No symptoms Ears, Nose, Mouth, Throat: Reports: No symptoms Respiratory: Reports: No symptoms Cardiac: Reports: No symptoms GI: Reports: Abdominal pain : Reports: No symptoms Musculoskeletal: Reports: Back pain Skin: Reports: No symptoms Neurological: Reports: No symptoms Endocrine: Reports: No symptoms Hematologic/Lymphatic: Reports: No symptoms All Other Systems: Reviewed and Negative <ISRAELERMA Rivera Last Filed: 05/20/19 15:07> Past Medical History - Past Medical History Previously Healthy: No Endocrine: Reports: None Cardiovascular: Reports: None Respiratory: Reports: None Hematological: Reports: None Gastrointestinal: Reports: None Genitourinary: Reports: None, Other (GENITAL HERPES, STDS) Neuro/Psych: Reports: Other (ADD/ADHD, HEAD INJURY ) Musculoskeletal: Reports: None Cancer: Reports: None Other Pertinent Past Medical History: ADD, ADHD - Surgical History General Surgical History: Reports: None, Orthopedic (Prior right shoulder injury , right hand surgery) - Family History Family History: Reports: None - Social History Smoking Status: Current every day smoker Hx Substance Use: Yes Alcohol Screening: Occasionally - Immunizations Tetanus Shot up to Date: No <ISRAELERMA Rivera Last Filed: 05/20/19 15:07> Physical Exam - Physical Exam Appearance: Well-appearing, No pain distress, Well-nourished Eyes: MARCELINO, EOMI, Conjunctiva clear ENT: Ears normal, Nose normal, Oropharynx normal Respiratory: Airway patent, Breath sounds clear, Breath sounds equal, Respirations nonlabored Cardiovascular: RRR, Pulses normal, No rub, No murmur GI/: Soft, Nontender, No masses, Bowel sounds normal, No Organomegaly Musculoskeletal: Normal strength, ROM intact, No edema, No calf tenderness Skin: Warm, Dry, Normal color Neurological: Sensation intact, Motor intact, Reflexes intact, Cranial nerves intact, Alert, Oriented Psychiatric: Affect appropriate, Mood appropriate <ISRAELERMA Rivera Last Filed: 05/20/19 15:07> Interpretation - Radiology Interpretation Radiology Interpretation By: Radiologist Radiology Results: Negative Exam Interpreted: CT Scan Radiology Interpretation By: Radiologist Radiology Results: Negative Exam Interpreted: CXR <VICTORINA STEVENSON Last Filed: 05/18/19 19:45> Re-Evaluation - Re-Evaluation Time of Re-Evaluation: 19:46 Status: Improved Vital Signs Stable: Yes (144/92) <VICTORINA STEVENSON Last Filed: 05/18/19 19:45> Physician Notification - Case Discussed Physician Notified: elva Time of Notification: 19:00 <ERMA WOOD - Last Filed: 05/20/19 15:07> Critical Care Note <PATRICKKARONVICTORINA - Last Filed: 05/18/19 19:45> - Critical Care Note Total Time (mins): 0 <ERMA WOOD - Last Filed: 05/20/19 15:07> - Critical Care Note Comments: Declined prescription for Ibuprofen (VICTROINA STEVENSON) Course - Course Hematology/Chemistry: 05/18/19 19:08 05/18/19 19:08 <ELVAVICTORINA - Last Filed: 05/18/19 19:45> - Course Hematology/Chemistry: 05/18/19 19:08 05/18/19 19:08 <VENTURASOFYAERMA - Last Filed: 05/20/19 15:07> - Course Orders, Labs, Meds: Lab Review 05/18/19 05/18/19 05/18/19 19:08 19:08 19:20 WBC 7.35 RBC 4.81 Hgb 15.7 Hct 45.7 MCV 95.0 H MCH 32.6 H MCHC 34.4 RDW Coeff of Tc 12.5 Plt Count 249 Immature Gran % (Auto) 0.3 Neut % (Auto) 65.5 Lymph % (Auto) 25.2 [place] % (Auto) 8.3 Eos % (Auto) 0.3 Baso % (Auto) 0.4 Immature Gran # (Auto) 0.0 Neut # (Auto) 4.8 Lymph # (Auto) 1.9 [place] # (Auto) 0.6 Eos # (Auto) 0.0 Baso # (Auto) 0.0 Sodium 136.9 Potassium 3.50 Chloride 97.9 L Carbon Dioxide 28.2 Anion Gap 14.30 BUN 4.9 L Creatinine 0.89 Estimated GFR (MDRD) 97.00 BUN/Creatinine Ratio 5.50 Glucose 117.0 H Calcium 9.76 Total Bilirubin 0.87 AST 36.4 ALT 47.3 Alkaline Phosphatase 62.7 Total Protein 8.18 Albumin 4.87 Globulin 3.31 Albumin/Globulin Ratio 1.47 Amylase 72.4 Lipase 53.2 Urine Color Urine Clarity Urine pH Ur Specific [place] Urine Protein Urine Glucose (UA) Urine Ketones Urine Blood Urine Nitrite Urine Bilirubin Urine Urobilinogen Ur Leukocyte Esterase Urine Opiates Screen Negative Ur Oxycodone Screen Negative Urine Methadone Screen Negative Ur Propoxyphene Screen Negative Ur Barbiturates Screen Negative U Tricyclic Antidepress Negative Ur Phencyclidine Scrn Negative Ur Amphetamine Screen Positive U Methamphetamines Scrn Positive U Benzodiazepines Scrn Negative Urine Cocaine Screen Negative U Cannabinoids Screen Negative 05/18/19 19:20 WBC RBC Hgb Hct MCV MCH MCHC RDW Coeff of Tc Plt Count Immature Gran % (Auto) Neut % (Auto) Lymph % (Auto) [place] % (Auto) Eos % (Auto) Baso % (Auto) Immature Gran # (Auto) Neut # (Auto) Lymph # (Auto) [place] # (Auto) Eos # (Auto) Baso # (Auto) Sodium Potassium Chloride Carbon Dioxide Anion Gap BUN Creatinine Estimated GFR (MDRD) BUN/Creatinine Ratio Glucose Calcium Total Bilirubin AST ALT Alkaline Phosphatase Total Protein Albumin Globulin Albumin/Globulin Ratio Amylase Lipase Urine Color Yellow Urine Clarity Clear Urine pH 7.0 Ur Specific [place] 1.010 Urine Protein Negative Urine Glucose (UA) Negative Urine Ketones Negative Urine Blood Negative Urine Nitrite Negative Urine Bilirubin Negative Urine Urobilinogen 0.2 Ur Leukocyte Esterase Negative Urine Opiates Screen Ur Oxycodone Screen Urine Methadone Screen Ur Propoxyphene Screen Ur Barbiturates Screen U Tricyclic Antidepress Ur Phencyclidine Scrn Ur Amphetamine Screen U Methamphetamines Scrn U Benzodiazepines Scrn Urine Cocaine Screen U Cannabinoids Screen Orders Category Date Time Status AMYLASE Stat LAB 05/18/19 19:08 Completed CBC W/ AUTO DIFF Stat LAB 05/18/19 19:08 Completed COMPREHENSIVE METABOLIC PANEL Stat LAB 05/18/19 19:08 Completed LIPASE Stat LAB 05/18/19 19:08 Completed URINALYSIS C & S IF INDICATED Stat LAB 05/18/19 19:20 Completed URINE DRUG SCREEN (RAPID FOR ED) [DRUG SCREEN, URINE, LAB 05/18/19 19:20 Completed RAPID] Stat CHEST, 2 VIEWS PA & LAT Stat RADS 05/18/19 18:[address] ABD/PEL WO RENAL STONE PROT Stat RADS 05/18/19 18:48 Completed Vital Signs: Temp Pulse Resp BP Pulse Ox 05/18/19 19:46 106 H 16 144/92 H 97 05/18/19 17:17 99.5 F 111 H 16 154/111 H 96 Departure - Departure Time of Disposition: 19:45 <VICTORINA STEVENSON - Last Filed: 05/18/19 19:45> - Departure Pt referred to PMD for follow-up: Yes IPMP verified?: No Disposition Discussed With: Patient <ERMA WOOD - Last Filed: 05/20/19 15:07> - Departure Disposition: HOME SELF-CARE Discharge Problem: Backache, Drug abuse Abdominal pain Qualifiers: Abdominal location: generalized Qualified Code(s): R10.84 - Generalized abdominal pain Instructions: Acute Abdominal Pain (ED), Methamphetamine Abuse (ED), Abdominal Pain (ED) Condition: Good Additional Instructions: Please call your Family Physician as soon as possible to schedule a follow-up appointment. Allergies/Adverse Reactions: Allergies No Known Allergies Allergy (Verified 05/18/19 17:40) Home Medications: Ambulatory Orders 1 [No Reported Medications] 05/18/19
--- NOTE | 2019-05-18 19:20 | DI ---
EXAM: Chest, two views, 05/18/2019 HISTORY: Cough COMPARISON: 04/29/2019 FINDINGS / IMPRESSION: Cardiomediastinal countours appear stable. There is no focal pulmonary conso lidation. No pleural effusion or pneumothorax. No acute cardiopulmonary process.
--- NOTE | 2019-05-18 19:21 | CT ---
Exam: CT abdomen and pelvis without contrast Date: 05/18/2019 Comparison: CT abdomen pelvis february 02, 2019 History: Back pain and pain TECHNIQUE: Axial CT images through the abdomen and pelvis were obtained without oral or IV contrast . FINDINGS: The liver and spleen are normal in size and contour. No adrenal mass. No peripancreatic fluid collection or inflammatory changes seen. Gallbladder is normal in caliber and without wall thi ckening or pericholecystic fat stranding. No urolithiasis, hydronephrosis, or hydroureter. No bowel obstruction. Negative appendix on axial image 101. There are air-filled loops of nondistended large bowel. No abdominal aortic aneurysm. No mesenteric or retroperitoneal lymphadenopathy. No ascites . No pneumoperitoneum. No bladder calculi. No bladder wall thickening. No pelvic or inguinal lymp hadenopathy. No acute fracture or evidence of osteomyelitis - diskitis of the included spine. There is degenerative disc disease of the lower lumbar spine. Impression: 1. No urolithiasis or urinary obstruction. 2. No bowel obstruction. 3. Negative appendix. 4. No acute fracture or evidence of osteomyelitis - diskitis of the included spine.
[2019-05-18 19:47] VITALS: BP 144/92
== END 2019-05-18 19:51 | disposition home or self-care (01) ==
LOC: ED 17:17
DX: M54.9 Dorsalgia, unspecified (principal); R10.84 Generalized abdominal pain; F15.10 Other stimulant abuse, uncomplicated; R05 Cough; F17.210 Nicotine dependence, cigarettes, uncomplicated
CPT/HCPCS: 36415; 80053; 80306; 81001; 82150; 83690; 85025; 99284

== ENCOUNTER 2019-05-20 15:24 | Emergency (ER) ==
[2019-05-20 15:30] VITALS: BP 124/74; TEMP 99.3; BMI 26.4
--- NOTE | 2019-05-20 15:57 | ED.PDOC ---
General ED Provider: Dr. ERMA WOOD Chief Complaint: Non-specific Complaint Stated Complaint: generalized body pain hx of chronic methampt abuse returns for same issue feeling axious generalized body pain no change in the pattern of pain Time Seen by Physician: 15:33 (josue present at all times ) Mode of Arrival: Walk-In Information Source: Patient Exam Limitations: No limitations Primary Care Provider: IRASEMA CORRAL Nursing and Triage Documentation Reviewed and Agree: Yes Does patient meet sepsis criteria?: No System Inflammatory Response Syndrome: Not Applicable Sepsis Protocol: For patient's 13 years and over: Temp is 96.8 and below OR 101 and greater Pulse >90 BPM Resp >20/minute Acutely Altered Mental Status Are patient's symptoms suggestive of a new infection, such as: -Pneumonia -Skin, Soft Tissue -Endocarditis -UTI -Bone, Joint Infection -Implantable Device -Acute Abdominal Infection -Wound Infection -Meningitis -Blood Stream Catheter Infection -Unknown Miscellaneous Complaint Exam - Complex/Multi-System Complaint/Exam Onset/Duration: weeks Symptoms Are: Still present Episodes Lasting: Weeks Initial Severity: Mild Location of Pain: abdominal pain arms, legs Associated Signs and Symptoms: Denies: Decreased responsiveness, Confusion, Agitation, Dizziness, Weakness, Syncope, Headache, Short of air, Cough, Wheezing , Hemoptysis, Chest pain, Palpitations, Edema, Nausea, Vomiting, Diarrhea, Abdominal pain, Back pain, Dysuria, Hematemesis, Melena, Decreased oral intake, Fever, Diaphoresis, Immunocompromised, Anticoagulation Therapy, Recent medication changes, Indwelling medical educator, Prior MRSA, Prior VRE, Recent trauma, Remote trauma Respiratory Distress: None JVD Present: No Abdominal Findings: Present: Normal findings Glascow Coma Scale (see protocol): 15 Meningeal Signs Positive: No Focal Weakness: Present: None Focal Sensory Loss: Present: None Gait: Normal Gag Reflex Present: Yes Babinski Sign: Negative Right, Negative Left Skin Findings: Present: Normal findings Review of Systems - Review Of Systems Constitutional: Reports: Malaise Eyes: Reports: No symptoms Ears, Nose, Mouth, Throat: Reports: No symptoms Respiratory: Reports: No symptoms Cardiac: Reports: No symptoms GI: Reports: Abdominal pain : Reports: No symptoms Musculoskeletal: Reports: Joint pain Skin: Reports: No symptoms Neurological: Reports: No symptoms Endocrine: Reports: No symptoms Hematologic/Lymphatic: Reports: No symptoms All Other Systems: Reviewed and Negative Past Medical History - Past Medical History Previously Healthy: No Endocrine: Reports: None Cardiovascular: Reports: None Respiratory: Reports: None Hematological: Reports: None Gastrointestinal: Reports: None Genitourinary: Reports: None, Other (GENITAL HERPES, STDS) Neuro/Psych: Reports: Other (ADD/ADHD, HEAD INJURY ) Musculoskeletal: Reports: None Cancer: Reports: None Other Pertinent Past Medical History: ADD, ADHD - Surgical History General Surgical History: Reports: None, Orthopedic (Prior right shoulder injury , right hand surgery) - Family History Family History: Reports: None - Social History Smoking Status: Current every day smoker Hx Substance Use: Yes Alcohol Screening: Occasionally - Immunizations Tetanus Shot up to Date: No Physical Exam - Physical Exam Appearance: Well-appearing, No pain distress, Well-nourished Eyes: MARCELINO, EOMI, Conjunctiva clear ENT: Ears normal, Nose normal, Oropharynx normal Respiratory: Airway patent, Breath sounds clear, Breath sounds equal, Respirations nonlabored Cardiovascular: RRR, Pulses normal, No rub, No murmur GI/: Soft, Nontender, No masses, Bowel sounds normal, No Organomegaly Musculoskeletal: Normal strength, ROM intact, No edema, No calf tenderness Skin: Warm, Dry, Normal color Neurological: Sensation intact, Motor intact, Reflexes intact, Cranial nerves intact, Alert, Oriented Psychiatric: Affect appropriate, Mood appropriate Critical Care Note - Critical Care Note Total Time (mins): 0 Course - Course Vital Signs: Temp Pulse Resp BP Pulse Ox 05/20/19 15:24 99.3 F 121 H 18 124/74 94 L Departure - Departure Time of Disposition: 15:59 Disposition: HOME SELF-CARE Discharge Problem: Backache Abdominal pain Qualifiers: Abdominal location: generalized Qualified Code(s): R10.84 - Generalized abdominal pain Instructions: Abdominal Pain (ED) Condition: Good Pt referred to PMD for follow-up: Yes IPMP verified?: No Additional Instructions: Please call your Family Physician as soon as possible to schedule a follow-up appointment. Allergies/Adverse Reactions: Allergies No Known Allergies Allergy (Verified 05/20/19 15:37) Home Medications: Ambulatory Orders 1 [No Reported Medications] 05/18/19
== END 2019-05-20 16:07 | disposition home or self-care (01) ==
LOC: ED 15:24
DX: M54.9 Dorsalgia, unspecified (principal); R10.84 Generalized abdominal pain; M79.605 Pain in left leg; M79.604 Pain in right leg; M79.602 Pain in left arm; M79.601 Pain in right arm; F41.9 Anxiety disorder, unspecified; F17.210 Nicotine dependence, cigarettes, uncomplicated
CPT/HCPCS: 99281